=== PATIENT | male | born 1955 | race Two or more races ===

== ENCOUNTER 2018-06-22 13:59 | Emergency (ER) | payer OTHER ==
[~2018-06-22] VITALS: Ht 162.6 cm; Wt 74.8 kg
[2018-06-22] MEDS ORDERED: ONDANSETRON HCL 4 MG/2 ML VIAL IV ONE (14:30)
[2018-06-22] MEDS ORDERED: HYDROmorphone HCL 2 MG/ML VL IV ONE (14:30)
[2018-06-22 14:59] LABS: Basophils # (auto) 0.1 uL; Basophils % (auto) 0.9 % (0.0-2.0); Eosinophils # (auto) 0.2 uL; Eosinophils % (auto) 2.3 % (0.0-7.0); Hematocrit 49.1 % (41.0-53.0); Lymphocytes # (auto) 2.4 uL; Lymphocytes % (auto) 29.8 % (10.0-50.0); Mean Corpuscular Hemoglobin 31.7 pg (28.0-32.0); Mean Corpuscular Hgb Conc. 34.5 g/dL (32.0-36.0); Mean Corpuscular Volume 91.9 fL (80.0-100.0); Monocytes # (auto) 0.5 uL; Monocytes % (auto) 6.4 % (0.0-12.0); Neutrophils # (auto) 4.8 uL; Neutrophils % (auto) 60.6 % (37.0-80.0); Nucleated Red Blood Cells % 0.1 %; Platelet Count (auto) 199 10^3/uL (140-450); Red Blood Cells 5.35 10^6/uL (4.5-5.90); Red Cell Distribution Width 13.2 % (11.8-14.3); White Blood Cell 7.9 10^3/uL (4.4-10.8)
[2018-06-22 15:08] LABS: Potassium 3.5 mmol/L (3.5-5.1)
[2018-06-22 15:10] LABS: Albumin 3.9 g/dL (3.4-5.0); Calcium 8.5 mg/dL (8.5-10.1)
[2018-06-22 15:13] LABS: BUN/Creatinine Ratio 9.5
[2018-06-22 15:17] LABS: Bilirubin, Total 0.5 mg/dL (0.2-1.0); Total Protein 7.8 g/dL (6.4-8.2)
[2018-06-22 15:18] LABS: INR 1.08 (0.9-1.15); Partial Thromboplastin Time 24.9 sec (23.78-33.04); Prothrombin Time 11.5 sec (9.27-12.13)
[2018-06-22 16:58] VITALS: BP 148/91
== END 2018-06-22 18:19 | disposition home or self-care (01) ==
LOC: EDBD 13:59 → ER 14:18
DX: S42.342A Displaced spiral fracture of shaft of humerus, left arm, initial encounter for closed fracture (principal); W11.XXXA Fall on and from ladder, initial encounter; Y93.89 Activity, other specified; Y99.8 Other external cause status; Y92.89 Other specified places as the place of occurrence of the external cause
CPT/HCPCS: 29105; 36415; 73060; 80053; 85025; 85610; 85730; 94761; 96374; 96375; 99284; J1170; J2405

== ENCOUNTER 2022-07-14 18:20 | Inpatient (IN) | payer OTHER, MEDICAID ==
[~2022-07-14] VITALS: Ht 160 cm; Wt 72.7 kg
[2022-07-14] MEDS ORDERED: PANTOPRAZOLE 80 MG in SODIUM CHL 0.9% 100 ML IV ONE (18:45)
[2022-07-14] MEDS ORDERED: SODIUM CHLORIDE 0.9% 1,000 ML IV ONE (18:45)
[2022-07-14] MEDS ORDERED: PANTOPRAZOLE 40mg/50ML NS AE 50 ML IV ONE (18:45)
[2022-07-14 19:21] LABS: Basophils # (auto) 0 10 ^3/uL (0-0.2); Basophils % (auto) 0.6 % (0.0-2.0); Eosinophils # (auto) 0.1 10 ^3/uL (0-0.8); Eosinophils % (auto) 0.9 % (0.0-7.0); Hemoglobin 10.3 g/dL (13.5-17.5); Lymphocytes % (auto) 28.3 % (10.0-50.0); Mean Corpuscular Hemoglobin 31.7 pg (28.0-32.0); Mean Corpuscular Hgb Conc. 34.3 g/dL (32.0-36.0); Mean Corpuscular Volume 92.2 fL (80.0-100.0); Monocytes # (auto) 0.6 10 ^3/uL (0-1.3); Monocytes % (auto) 7.9 % (0.0-12.0); Neutrophils # (auto) 4.5 10 ^3/uL (1.6-8.6); Neutrophils % (auto) 62.3 % (37.0-80.0); Nucleated Red Blood Cells % 0.1 %; Red Blood Cells 3.26 10^6/uL (4.5-5.90); Red Cell Distribution Width 13.5 % (11.8-14.3); White Blood Cell 7.2 10^3/uL (4.4-10.8)
[2022-07-14] MEDS ORDERED: PANTOPRAZOLE 40 MG/10 ML VIAL INJ IV ONE (19:24)
[2022-07-14 19:38] LABS: INR 1.26 (0.9-1.15)
[2022-07-14 19:39] LABS: Albumin 2.5 g/dL (3.4-5.0); Calcium 6.8 mg/dL (8.5-10.1); Potassium 3.5 mmol/L (3.5-5.1)
[2022-07-14 19:42] LABS: BUN/Creatinine Ratio 33.1 (10.0-20.0); Bilirubin, Total 0.3 mg/dL (0.2-1.0); Total Protein 5.2 g/dL (6.4-8.2)
[2022-07-14] MEDS ORDERED: ONDANSETRON HCL 4 MG/2 ML VIAL IV ONE (19:45)
[2022-07-14] MEDS ORDERED: ACETAMINOPHEN 325 MG TAB PO PRN (21:30)
[2022-07-14] MEDS ORDERED: HYDROcodone-ACET 5/325MG TAB PO PRN (21:30)
[2022-07-14] MEDS ORDERED: ALBUMIN 25% 100 ML IV ONE (21:30)
[2022-07-14] MEDS ORDERED: DOCUSATE SOD 100 MG CAP PO PRN (21:30)
[2022-07-14] MEDS ORDERED: CALCIUM GLUC 1,000mg/50ml-NS 50 ML IV ONE (21:30)
[2022-07-14] MEDS ORDERED: ONDANSETRON HCL 4 MG/2 ML VIAL IV PRN (21:30)
[2022-07-14] MEDS ORDERED: MORPHINE SULFATE INJ 2 MG/ml SYRG IV PRN (23:30)
[2022-07-14] MEDS ORDERED: NITROGLYCERIN 0.4 MG SL TAB SL PRN (23:30)
[2022-07-15] MEDS: D5W/SOD CHL 0.45% 1,000 ML IV SCH ×3 (00:47→15:58)
[2022-07-15 06:31] LABS: Basophils # (auto) 0 10 ^3/uL (0-0.2); Basophils % (auto) 0.6 % (0.0-2.0); Eosinophils # (auto) 0.1 10 ^3/uL (0-0.8); Eosinophils % (auto) 1.8 % (0.0-7.0); Hematocrit 30.6 % (41.0-53.0); Hemoglobin 10.6 g/dL (13.5-17.5); Lymphocytes % (auto) 39.5 % (10.0-50.0); Mean Corpuscular Hemoglobin 32.1 pg (28.0-32.0); Mean Corpuscular Hgb Conc. 34.8 g/dL (32.0-36.0); Mean Corpuscular Volume 92.1 fL (80.0-100.0); Monocytes # (auto) 0.6 10 ^3/uL (0-1.3); Monocytes % (auto) 7.2 % (0.0-12.0); Neutrophils # (auto) 3.9 10 ^3/uL (1.6-8.6); Neutrophils % (auto) 50.9 % (37.0-80.0); Red Blood Cells 3.32 10^6/uL (4.5-5.90); Red Cell Distribution Width 13.6 % (11.8-14.3); White Blood Cell 7.7 10^3/uL (4.4-10.8)
[2022-07-15 06:58] LABS: Albumin 3.3 g/dL (3.4-5.0); Calcium 7.7 mg/dL (8.5-10.1); Potassium 3.6 mmol/L (3.5-5.1)
[2022-07-15 07:02] LABS: BUN/Creatinine Ratio 35.6 (10.0-20.0); Bilirubin, Total 0.9 mg/dL (0.2-1.0); Total Protein 6.2 g/dL (6.4-8.2)
[2022-07-15 10:35] VITALS: BP 131/68
[2022-07-15] MEDS: PANTOPRAZOLE 40 MG/10 ML VIAL INJ IV SCH ×2 (11:27→22:52)
[2022-07-15 12:51] VITALS: BP 124/77
[2022-07-15 16:24] VITALS: BP 118/78
[2022-07-15 21:43] VITALS: BP 105/68
[2022-07-16 05:00] VITALS: BP 111/69
[2022-07-16 08:34] VITALS: BP 105/67
[2022-07-16] MEDS ORDERED: LIDOCAINE VISCOUS 2% 15ML UD ONE (08:46)
[2022-07-16] MEDS ORDERED: diphenhdrAMINE HCL 50 MG/1 ML VL ONE (08:47)
[2022-07-16] MEDS: PANTOPRAZOLE 40 MG/10 ML VIAL INJ IV SCH ×2 (09:34→22:04)
[2022-07-16] MEDS: MIDAZOLAM HCL 2MG/2ML 2ml VIAL (1mg/ml) ONE ×2 (11:32→11:36)
[2022-07-16] MEDS: fentaNYL CITRATE 100 MCG/2 ML VL ONE ×2 (11:32→11:36)
[2022-07-16] MEDS ORDERED: SUCRALFATE 1 GM/10 ML ORAL SUSP GT ONE (12:45)
[2022-07-16] MEDS: D5W/SOD CHL 0.45% 1,000 ML IV SCH (13:30)
[2022-07-16 16:44] VITALS: BP 124/81
[2022-07-16] MEDS: SUCRALFATE 1 GM/10 ML ORAL SUSP PO SCH ×2 (18:26→22:04)
[2022-07-16 22:00] VITALS: BP 123/81
[2022-07-17] MEDS: D5W/SOD CHL 0.45% 1,000 ML IV SCH (02:20)
[2022-07-17 04:43] VITALS: BP 110/73
[2022-07-17] MEDS: SUCRALFATE 1 GM/10 ML ORAL SUSP PO SCH ×2 (06:43→11:30)
[2022-07-17 08:00] VITALS: BP 117/73
[2022-07-17] MEDS ORDERED: SUCR1TAB22 PO (08:51)
[2022-07-17] MEDS ORDERED: PANT40T PO (08:51)
[2022-07-17] MEDS ORDERED: FERR-7 PO (08:52)
[2022-07-17 09:00] VITALS: BP 117/73
[2022-07-17] MEDS: PANTOPRAZOLE 40 MG/10 ML VIAL INJ IV SCH (10:14)
[2022-07-17 13:00] VITALS: BP 118/61
== END 2022-07-17 13:27 | disposition home or self-care (01) | DRG 378 ==
LOC: EDBD 18:20 → ER 18:20 → OVERFLOW 23:23 → EAST 07-15 08:53
PROVIDERS: ADMIT Nurse Practitioner Family; ATTEND Family Medicine
PROC: 0DB68ZX Excision of Stomach, Via Natural or Artificial Opening Endoscopic, Diagnostic (ICD-10-PCS; 2022-07-16)
PROC: 0DB98ZX Excision of Duodenum, Via Natural or Artificial Opening Endoscopic, Diagnostic (ICD-10-PCS; principal; 2022-07-16 11:24)
DX: K29.91 Gastroduodenitis, unspecified, with bleeding (principal); D62 Acute posthemorrhagic anemia; E44.0 Moderate protein-calorie malnutrition; K25.4 Chronic or unspecified gastric ulcer with hemorrhage; E83.51 Hypocalcemia; E86.0 Dehydration; E88.09 Other disorders of plasma-protein metabolism, not elsewhere classified; K44.9 Diaphragmatic hernia without obstruction or gangrene; K31.9 Disease of stomach and duodenum, unspecified; I95.9 Hypotension, unspecified; K21.9 Gastro-esophageal reflux disease without esophagitis; Z87.19 Personal history of other diseases of the digestive system; Z68.28 Body mass index [BMI] 28.0-28.9, adult
CPT/HCPCS: 36415; 43239; 76705; 80053; 85025; 85610; 86850; 86900; 86901; 96361; 96365; 96367; 96368; 99291; C9113; G0378; J2250; P9047

== ENCOUNTER 2022-08-30 19:13 | Emergency (ER) | payer OTHER, MEDICAID ==
[~2022-08-30] VITALS: Ht 157.5 cm; Wt 72.7 kg
[~2022-08-30 19:13] MED LIST: FERR-7 PO; PANT40T PO; SUCR1TAB22 PO
[2022-08-30 22:14] LABS: Basophils # (auto) 0.1 10 ^3/uL (0-0.2); Basophils % (auto) 0.8 % (0.0-2.0); Eosinophils # (auto) 0.2 10 ^3/uL (0-0.8); Eosinophils % (auto) 2.4 % (0.0-7.0); Hematocrit 46.4 % (41.0-53.0); Hemoglobin 15.6 g/dL (13.5-17.5); Lymphocytes # (auto) 2.9 10 ^3/uL (0.4-5.4); Lymphocytes % (auto) 40.9 % (10.0-50.0); Mean Corpuscular Hemoglobin 31.6 pg (28.0-32.0); Mean Corpuscular Hgb Conc. 33.6 g/dL (32.0-36.0); Mean Corpuscular Volume 94.2 fL (80.0-100.0); Monocytes # (auto) 0.6 10 ^3/uL (0-1.3); Monocytes % (auto) 8.9 % (0.0-12.0); Neutrophils # (auto) 3.3 10 ^3/uL (1.6-8.6); Nucleated Red Blood Cells % 0.1 %; Red Blood Cells 4.93 10^6/uL (4.5-5.90); Red Cell Distribution Width 13.4 % (11.8-14.3); White Blood Cell 7.1 10^3/uL (4.4-10.8)
[2022-08-30 22:47] LABS: Albumin 4.1 g/dL (3.4-5.0); Calcium 8.3 mg/dL (8.5-10.1); Potassium 3.8 mmol/L (3.5-5.1)
[2022-08-30 22:51] LABS: BUN/Creatinine Ratio 11.1 (10.0-20.0); Bilirubin, Total 0.2 mg/dL (0.2-1.0); Total Protein 8.3 g/dL (6.4-8.2)
[2022-08-31] MEDS ORDERED: IOHEXOL 350 MG/ML 100ML IJ ONE (02:15)
[2022-08-31] MEDS ORDERED: ACET-6 PO (03:15)
[2022-08-31] MEDS ORDERED: CYCL-839 PO (03:15)
[2022-08-31 08:06] VITALS: BP 151/89
== END 2022-08-31 08:08 | disposition home or self-care (01) ==
LOC: ER 19:13
DX: S16.1XXA Strain of muscle, fascia and tendon at neck level, initial encounter (principal); R51.9 Headache, unspecified; Z86.73 Personal history of transient ischemic attack (TIA), and cerebral infarction without residual deficits; X58.XXXA Exposure to other specified factors, initial encounter; Y93.89 Activity, other specified; Y92.89 Other specified places as the place of occurrence of the external cause; Y99.8 Other external cause status
CPT/HCPCS: 36415; 70450; 70496; 71045; 80053; 83605; 83690; 83880; 84484; 85025; 85379; 85652; 87040; 99284; Q9967

== ENCOUNTER 2023-09-11 01:42 | Inpatient (IN) | payer OTHER, MEDICAID ==
[~2023-09-11] VITALS: Ht 157.5 cm; Wt 72.7 kg
[~2023-09-11 01:42] MED LIST changes: +ACET-6 PO; +CYCL-839 PO; -SUCR1TAB22 PO; +SUCR1TAB31 PO
[2023-09-11 04:00] VITALS: PULSE 100; RESP 23; O2SAT 96
[2023-09-11 06:15] LABS: Chloride 106 mmol/L (98-107); Potassium 3.8 mmol/L (3.5-5.1); Sodium 139 mmol/L (136-145)
[2023-09-11 06:16] LABS: Anion Gap 11 (5-15); Calcium 9.7 mg/dL (8.7-10.4); Carbon Dioxide 22 mmol/L (20-30)
[2023-09-11 06:18] LABS: Basophils # (auto) 0.1 10 ^3/uL (0-0.2); Basophils % (auto) 0.6 % (0.0-2.0); Eosinophils # (auto) 0.1 10 ^3/uL (0-0.8); Eosinophils % (auto) 1.8 % (0.0-7.0); Hematocrit 50.2 % (41.0-53.0); Hemoglobin 17.4 g/dL (13.5-17.5); Lymphocytes # (auto) 2.3 10 ^3/uL (0.4-5.4); Lymphocytes % (auto) 27.7 % (10.0-50.0); Mean Corpuscular Hgb Conc. 34.6 g/dL (32.0-36.0); Mean Corpuscular Volume 92.6 fL (80.0-100.0); Monocytes # (auto) 0.6 10 ^3/uL (0-1.3); Neutrophils # (auto) 5.1 10 ^3/uL (1.6-8.6); Neutrophils % (auto) 62.9 % (37.0-80.0); Nucleated Red Blood Cells % 0.2 %; Red Blood Cells 5.42 10^6/uL (4.5-5.90); White Blood Cell 8.2 10^3/uL (4.4-10.8)
[2023-09-11 06:21] LABS: BUN/Creatinine Ratio 16.1 (10.0-20.0); Blood Urea Nitrogen 18 mg/dL (9-23); Glucose 108 mg/dL (74-106)
[2023-09-11] MEDS: ONDANSETRON HCL 4 MG/2 ML VIAL IV ONE (06:29)
[2023-09-11] MEDS: MORPHINE SULFATE 4 MG/ML SYR/VIAL IV ONE (06:32)
[2023-09-11] MEDS ORDERED: ONDANSETRON HCL 4 MG/2 ML VIAL IV PRN (07:00)
[2023-09-11] MEDS ORDERED: ACETAMINOPHEN 325 MG TAB PO PRN (07:00)
[2023-09-11] MEDS ORDERED: MORPHINE SULFATE INJ 2 MG/ml SYRG IV PRN (07:00)
[2023-09-11 07:16] LABS: INR 1.22 (0.9-1.15); Partial Thromboplastin Time 29.9 SEC (24.5-34.5); Prothrombin Time 12.7 sec (9.3-11.8)
[2023-09-11] MEDS: LIDOCAINE 2% JELLY 11ml (GLYDO) UR ONE ×2 (08:00→08:46)
[2023-09-11 08:33] VITALS: PULSE 100; RESP 23; O2SAT 96
[2023-09-11 08:58] VITALS: BP 146/101; PULSE 111; RESP 20; TEMP 97.7; O2SAT 96
[2023-09-11] MEDS: HYDROcodone-ACET 5/325MG TAB PO PRN (09:49)
[2023-09-11] MEDS ORDERED: LIDOCAINE 2% JELLY 11ml (GLYDO) ONE (11:48)
[2023-09-11] MEDS ORDERED: LIDOCAINE W/ EPINEPHRINE 1% 20ML VIAL ONE (11:48)
[2023-09-11] MEDS ORDERED: CIPROFLOXACIN 400MG/200ML 0 ML IV ONE (11:54)
[2023-09-11] MEDS: amLODIPine BESYLATE 5 MG TAB PO SCH (12:43)
[2023-09-11 13:00] VITALS: BP 145/76; PULSE 99; RESP 14; TEMP 97.5; O2SAT 93
[2023-09-11 17:00] VITALS: BP 126/79; PULSE 85; RESP 16; TEMP 97.8; O2SAT 91
[2023-09-11 21:00] VITALS: BP 132/77; PULSE 74; RESP 18; TEMP 97.7; O2SAT 98
[2023-09-11] MEDS: ATORVASTATIN 20 MG TAB PO SCH (21:37)
[2023-09-11 22:20] LABS: Urine Bacteria None Seen /hpf (None Seen)
[2023-09-11 22:27] LABS: Urine Blood 3+ /uL (Negative); Urine Clarity Clear (Clear); Urine Color Colorless (Yellow); Urine Protein, UAD 1+ (Negative); Urine Specific Gravity 1.005 (1.001-1.035); Urine Urobilinogen Normal (Negative); Urine WBC 16 /hpf (0 - 3); Urine pH 6.5 (5.0-9.0)
[2023-09-12 01:00] VITALS: BP 128/69; PULSE 80; RESP 17; TEMP 98; O2SAT 97
[2023-09-12] MEDS: cefTRIAXone 1GM/50ML D5W 50 ML IV ONE (03:04)
[2023-09-12 05:00] VITALS: BP 114/71; PULSE 66; RESP 17; TEMP 98.5; O2SAT 97
[2023-09-12 06:34] LABS: Basophils # (auto) 0.1 10 ^3/uL (0-0.2); Basophils % (auto) 0.6 % (0.0-2.0); Eosinophils # (auto) 0.1 10 ^3/uL (0-0.8); Hematocrit 44.5 % (41.0-53.0); Hemoglobin 15.5 g/dL (13.5-17.5); Lymphocytes # (auto) 2.7 10 ^3/uL (0.4-5.4); Lymphocytes % (auto) 26.7 % (10.0-50.0); Mean Corpuscular Hemoglobin 32.5 pg (28.0-32.0); Mean Corpuscular Hgb Conc. 34.9 g/dL (32.0-36.0); Mean Corpuscular Volume 93.3 fL (80.0-100.0); Monocytes # (auto) 0.8 10 ^3/uL (0-1.3); Monocytes % (auto) 7.8 % (0.0-12.0); Neutrophils # (auto) 6.5 10 ^3/uL (1.6-8.6); Neutrophils % (auto) 63.9 % (37.0-80.0); Nucleated Red Blood Cells % 0.1 %; Red Blood Cells 4.77 10^6/uL (4.5-5.90); White Blood Cell 10.2 10^3/uL (4.4-10.8)
[2023-09-12 06:43] LABS: Chloride 109 mmol/L (98-107); Potassium 4.2 mmol/L (3.5-5.1); Sodium 141 mmol/L (136-145)
[2023-09-12 06:44] LABS: Anion Gap 4 (5-15); Calcium 8.9 mg/dL (8.5-10.1); Carbon Dioxide 28 mmol/L (20-30)
[2023-09-12 06:49] LABS: BUN/Creatinine Ratio 13.6 (10.0-20.0); Blood Urea Nitrogen 16 mg/dL (9-23); Glucose 90 mg/dL (74-106)
[2023-09-12 09:00] VITALS: BP 114/73; PULSE 66; RESP 17; TEMP 97.9; O2SAT 94
[2023-09-12] MEDS ORDERED: CIPR-273 PO (10:33)
[2023-09-13] MEDS ORDERED: cefTRIAXone 1GM/50ML D5W 50 ML IV SCH (03:00)
== END 2023-09-12 13:15 | disposition home or self-care (01) | DRG 697 ==
LOC: ER 01:42 → OVERFLOW 07:06 → EAST 08:56
PROVIDERS: ADMIT Nurse Practitioner; ATTEND Nurse Practitioner
PROC: 0T7D7ZZ Dilation of Urethra, Via Natural or Artificial Opening (ICD-10-PCS; principal; 2023-09-11)
DX: N35.919 Unspecified urethral stricture, male, unspecified site (principal); N36.5 Urethral false passage; N40.1 Benign prostatic hyperplasia with lower urinary tract symptoms; I10 Essential (primary) hypertension; R33.8 Other retention of urine; Z86.73 Personal history of transient ischemic attack (TIA), and cerebral infarction without residual deficits
CPT/HCPCS: 36415; 71045; 74176; 80048; 81001; 85025; 85610; 85730; 96374; 96375; G0378; J2405

== ENCOUNTER 2024-01-17 22:58 | Emergency (ER) | payer OTHER, MEDICAID ==
[~2024-01-17] VITALS: Ht 157.5 cm; Wt 72.2 kg
[~2024-01-17 22:58] MED LIST changes: +CIPR-273 PO
[2024-01-17 23:56] VITALS: BP 165/94; PULSE 108; RESP 17; TEMP 98.1; O2SAT 98
--- NOTE | 2024-01-18 00:45 | DVH ---
INDICATION: Constipation. TECHNIQUE: Multiple views of the abdomen were obtained. COMPARISON: None FINDINGS: Nonobstructivel bowel gas pattern. The lung bases are clear. The visualized osseous structures appear intact. IMPRESSION: 1. Nonobstructivel bowel gas pattern. [id number] fecal retention throughout the colon.
[2024-01-18] MEDS: LACTULOSE 20Gm/30ML SOLN PO ONE (00:52)
[2024-01-18] MEDS ORDERED: LACT10SO3 PO (01:00)
--- NOTE | 2024-01-18 01:00 | ED.PDOC ---
GI ASSESSMENT HPI Comments This is a 68-year-old male presents to the ED chief complaint constipation. Patient reports last bowel movement was around 2 days ago. Three days ago patient states he had a bowel movement but it was small and hard. Patient recently started medications for his bladder he feels the medication is the source of his constipation. Patient states has not tried any [id number] relief measures. Does state he is passing gas. Patient denies nausea, vomiting, fever, chills, specific abdominal pain, chest pain, shortness of breath. Chief Complaint: Constipation Time Seen by MD: 23:15 Primary Care Provider: Cody Reviewed Notes: Nurses Notes, Medications, Allergies Allergies: Coded Allergies: NO KNOWN ALLERGIES (Unverified , 06/22/18) Home Meds Active Scripts Lactulose (Lactulose) 10 Gm/15 Ml Rhona, 30 ML PO DAILY PRN for 4 Days, #120 ML Prov:JOHN PAT 01/18/24 Ciprofloxacin Hcl (Cipro) 250 Mg Tab, 250 MG PO BID for 5 Days, #10 TAB Prov:FRAN MICHAELS MD 09/12/23 Cyclobenzaprine Hcl (Cyclobenzaprine Hcl) 10 Mg Tab, 10 MG PO BIDPRN PRN for 7 Days, #14 TAB Prov:PRABHU REBOLLAR S DO 08/31/22 Acetaminophen (Acetaminophen Extra Stren) 500 Mg Tab, 500 MG PO QIDPRN for 10 Days, #40 TAB Prov:PRABHU REBOLLAR S DO 08/31/22 Ferrous Sulfate (Iron) 325 Mg Tab, 325 MG PO BID, #180 TAB Prov:HERIBERTO SUMNER MD 07/17/22 Sucralfate (CARAFATE) 1 Gm Tab, 1 GM PO QID, #120 TAB Prov:HERIBERTO SUMNER MD 07/17/22 Pantoprazole Sodium Sesquihydr (Pantoprazole Sodium) 40 Mg Tab, 40 MG PO BID, #60 TAB Prov:HERIBERTO SUMNER MD 07/17/22 Information Source: Patient Mode of Arrival: Ambulatory Past Medical History PAST MEDICAL HISTORY: CVA Surgical History: Appendectomy Family History Family History: Unknown Social History Smoker: Non-Smoker Alcohol: Denies ETOH Use Drugs: Denies Drug Use Lives In: Home Constitutional: denies: chills, diaphoresis, fatigue, fever, malaise, sweats, weakness, others EENTM: denies: blurred vision, double vision, ear bleeding, ear discharge, ear drainage, ear pain, ear ringing, eye pain, eye redness, hearing loss, mouth pain, mouth swelling, nasal discharge, nose bleeding, nose congestion, nose pain, photophobia, tearing, throat pain, throat swelling, voice changes, others Respiratory: denies: cough, hemoptysis, orthopnea, SOB at rest, shortness of breath, SOB with excertion, stridor, wheezing, others Cardiovascular: denies: chest pain, dizzy spells, diaphoresis, Dyspnea on exertion, edema, irregular heart beat, left arm pain, lightheadedness, palpitations, PND, syncope, others Gastrointestinal: reports: constipated; denies: abdomen distended, abdominal pain, blood streaked bowels, diarrhea, dysphagia, difficulty swallowing, hematemesis, melena, nausea, poor appetite, poor fluid intake, rectal bleeding, rectal pain, vomiting, others Genitourinary: denies: burning, dysuria, flank pain, frequency, hematuria, incontinence, penile discharge, penile sore, pain, testicle pain, testicle swelling, urgency, others Neurological: denies: dizziness, fainting, headache, left sided numbness, left sided weakness, numbness, paresthesia, pre-existing deficit, right sided numbness, right sided weakness, seizure, speech problems, tingling, tremors, weakness, others Musculoskeletal: denies: back pain, gout, joint pain, joint swelling, muscle pain, muscle stiffness, neck pain, others Integumetry: denies: bruises, change in color, change in hair/nails, dryness, laceration, lesions, lumps, rash, wounds, others Allergic/Immunocompromised: denies: Difficulty Healing, Frequent Infections, Hives, Itching, others Hematologic/Lymphatic: denies: anemia, blood clots, easy bleeding, easy bruising, swollen glands, others Endocrine: denies: excessive hunger, excessive sweating, excessive thirst, excessive urination, flushing, intolerance to cold, intolerance to heat, unexplained weight gain, unexplained weight loss, others Psychiatric: denies: anxiety, bipolar disorder, depression, hopeless, panic disorder, schizophrenia, sleepless, suicidal, others Physical Exam General Appearance: No Apparent Distress, Normal HEENT: Pharynx Normal Neck: Full Range of Motion, Non-Tender Respiratory: Lungs Clear, No Respiratory Distress, Normal Breath Sounds Cardiovascular: No Murmur, Normal Peripheral Pulses, Regular Rate/Rhythm Breast Exam: Deferred Gastrointestinal: No Organomegaly, Non Tender, No Pulsatile Mass, Normal Bowel Sounds, Soft Genitalia: Deferred Pelvic: Deferred Rectal: Deferred Extremities: Normal range of motion Musculoskeletal : Apperance: Normal Neurologic: Alert, supervisor hot dip plating II-XII nml as Tested, No Motor Deficits, Normal Affect, Normal Mood, No Sensory Deficits Cerebellar Function: Normal Reflexes: Normal Skin: Dry, Normal Color, Warm Lymphatic: No Adenopathy Was a procedure done? Was a procedure done?: No GI differential Dx Differential Diagnosis: Bowel Obstruction X-Ray, Labs, Meds, VS Vital Signs Date Time Temp Pulse Resp B/P (MAP) Pulse Ox O2 Delivery O2 Flow Rate FiO2 01/17/24 23:56 98.1 108 17 165/94 (117) 98 98.1 01/17/24 23:56 108 17 98 Room Air 01/17/24 23:10 98.1 108 17 165/94 (117) 98 Current Medications Medications (Trade) Dose Ordered Sig/Boris Route Start Time Stop Time Status Last Admin Lactulose 30 ml ONCE ONCE PO 01/18/24 01:00 01/18/24 01:01 DC 01/18/24 00:52 X-Ray, Labs, Meds, VS Comment KUB Xray shows Nonobstructivel bowel gas pattern. [id number] fecal retention throughout the colon. Patient given 30 mL of lactulose script sent to his pharmacy on file. Advised to increase fluids, increase vegetables, consider daily fiber Metamucil in his diet consider prunes also discussed the medication he is on a follow up with his PCP consider adjusting med or changing medications. Advised to return to the ER for increasing abdominal pain, fevers, chest pain, shortness of breath, blood in stool, vomiting, or any concerning symptoms. Patient agrees with discharge plan of care. Time of 1ST Reevaluation: 00:54 Reevaluation 1ST: Improved Patient Education/Counseling: Diagnosis, Treatment, Prognosis, Need For Follow Up Family Education/Counseling: No Family Present Departure 1 Departure Time of Disposition: 00:54 Impression: Primary Impression: Constipation Qualified Codes: K59.03 - Drug induced constipation Disposition: 01 HOME / SELF CARE / HOMELESS Condition: Stable e-Prescriptions Lactulose (Lactulose) 10 Gm/15 Ml Rhona 30 ML PO DAILY PRN for 4 Days, #120 ML Prov: JOHN PAT 01/18/24 Discharged With: Self Critical Care Note Critical Care Time?: No Stability Stability form required: JOHN Beaver Jan 18, 2024 01:00
== END 2024-01-18 01:05 | disposition home or self-care (01) ==
LOC: ER 23:00
DX: K59.00 Constipation, unspecified (principal); Z79.899 Other long term (current) drug therapy; Z90.49 Acquired absence of other specified parts of digestive tract; Z86.73 Personal history of transient ischemic attack (TIA), and cerebral infarction without residual deficits
CPT/HCPCS: 74018